=== PATIENT | female | born 1985 | race Caucasian/White ===

== ENCOUNTER → 2017-04-12 | Outpatient (CLI) | payer OTHER | END | disposition home or self-care (01) | LOC: C.LABSPEC 16:53 | PROVIDERS: ATTEND Obstetrics & Gynecology | DX: Z34.01 Encounter for supervision of normal first pregnancy, first trimester (principal) ==

== ENCOUNTER → 2017-04-12 | Outpatient (CLI) | payer OTHER | END | disposition home or self-care (01) | LOC: C.PAPS 16:10 | PROVIDERS: ATTEND Obstetrics & Gynecology | DX: Z34.01 Encounter for supervision of normal first pregnancy, first trimester (principal) ==

== ENCOUNTER → 2017-04-15 | Outpatient (CLI) | payer OTHER ==
[2017-04-15 09:15] LABS: BASO % 0.2 %; BASO ABS # 0.02 K/uL (0-0.2); EOS % 0.6 %; EOS ABS # 0.05 K/uL (0-0.5); HEMATOCRIT 38.9 % (37-47); HEMOGLOBIN 13.4 g/dL (12.0-16.0); LYMPH ABS # 1.08 K/uL (1.2-3.4); MEAN CELL VOLUME 91.3 fL (80-100); MEAN CORPUSCULAR HEMOGLOBIN 31.5 pg (25-34); MEAN CORPUSCULAR HGB CONC 34.4 g/dl (32-36); MEAN PLATELET VOLUME 9.2 fL (7.4-10.4); MONO % 4.2 %; MONO ABS # 0.38 K/uL (0.11-0.59); NEUT % 81.9 %; NEUT ABS # 7.39 K/uL (1.4-6.5); PLATELET COUNT 238 K/uL (130-400); RED CELL DISTRIBUTION WIDTH CV 13.2 % (11.5-14.5); RED CELL DISTRIBUTION WIDTH SD 43.5 fL (36.4-46.3); WHITE BLOOD COUNT 9.02 K/uL (4.8-10.8)
== END | disposition home or self-care (01) ==
LOC: C.LAB 07:46
PROVIDERS: ATTEND Obstetrics & Gynecology
DX: Z34.82 Encounter for supervision of other normal pregnancy, second trimester (principal); Z3A.00 Weeks of gestation of pregnancy not specified

== ENCOUNTER 2017-05-17 19:08 | Emergency (ER) | payer OTHER ==
[~2017-05-17] VITALS: Ht 165.1 cm; Wt 87.0 kg
[2017-05-17 19:12] VITALS: TEMP 36.8; Ht 165.1 cm; Wt 87.0 kg
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
[2017-05-17] MEDS ORDERED: PRENTAB26 PO (19:42)
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
[2017-05-17 20:54] VITALS: BP 112/66; PULSE 80; O2SAT 99
== END 2017-05-17 20:54 | disposition home or self-care (01) ==
LOC: EDBD 19:08 → C.EDB 19:10
DX: O9A.212 Injury, poisoning and certain other consequences of external causes complicating pregnancy, second trimester (principal); V43.52XA Car driver injured in collision with other type car in traffic accident, initial encounter; Z3A.21 21 weeks gestation of pregnancy; Z87.891 Personal history of nicotine dependence

== ENCOUNTER 2019-06-27 09:55 | Inpatient (IN) ==
[~2019-06-27 09:55] MED LIST: CITRIC ACID/SODIUM CITRATE 15 ML UDC PO SCH; cefOXitin 2,000 MG in DEXTROSE 5% 50 ML IV SCH
[2019-06-27] MEDS ORDERED: CITRIC ACID/SODIUM CITRATE 15 ML UDC ONE (10:54)
[2019-06-27 11:04] LABS: Basophils # (auto) 0.01 K/uL (0-0.2); Basophils % (auto) 0.1 %; Eosinophils # (auto) 0.02 K/uL (0-0.5); Eosinophils % (auto) 0.2 %; Hematocrit (blood only) 39.4 % (37-47); Hemoglobin 13.1 g/dL (12.0-16.0); Immature Granulocytes # (auto) 0.03 K/uL (0.00-0.02); Immature Granulocytes % (auto) 0.3 %; Lymphocytes # (auto) 1.21 K/uL (1.2-3.4); Lymphocytes % (auto) 12.7 %; Mean Corpuscular Hemoglobin 29.6 pg (25-34); Mean Corpuscular Volume 88.9 fL (80-100); Mean Platelet Volume 10.8 fL (7.4-10.4); Monocytes # (auto) 0.48 K/uL (0.11-0.59); Neutrophils % (auto) 81.7 %; Platelet Count 181 K/uL (130-400); RDW Coefficient of Variation 14.1 % (11.5-14.5); Red Blood Count 4.43 M/uL (4.2-5.4); White Blood Count 9.55 K/uL (4.8-10.8)
[2019-06-27] MEDS ORDERED: LIDOCAINE/EPINEPHRINE 1% 20 ML VIAL ONE (11:06)
[2019-06-27 11:08] LABS: Mean Corpuscular Hgb Conc 33.2 g/dL (32-36)
[2019-06-27] MEDS ORDERED: MEPERIDINE HCL 25 MG/ML CARP/VIAL IV PRN (11:08)
[2019-06-27] MEDS ORDERED: ePHEDrine sulfate 50 MG/ML AMP IV PRN (11:08)
[2019-06-27] MEDS ORDERED: LACTATED RINGER'S 500 ML IV PRN (11:08)
[2019-06-27] MEDS ORDERED: PROMETHAZINE HCL 25 MG in SODIUM CHLORIDE 0.9% 50 ML IV PRN (11:08)
[2019-06-27] MEDS ORDERED: LACTATED RINGER'S 1,000 ML IV ONE (11:08)
[2019-06-27] MEDS ORDERED: DiphenhydrAMINE HCL 50 MG/ML VIAL IV PRN (11:08)
[2019-06-27] MEDS ORDERED: NALOXONE HCL 0.08 MG in SYRINGE 1.8 ML IV PRN (11:08)
[2019-06-27] MEDS ORDERED: MoRPHine SULFATE 2 MG/ML CARP IV PRN (11:08)
[2019-06-27] MEDS ORDERED: METOCLOPRAMIDE HCL 20 MG in SODIUM CHLORIDE 0.9% 50 ML IV PRN (11:08)
[2019-06-27] MEDS ORDERED: ONDANSETRON INJ 2 MG/ML 2 ML VIAL IV PRN (11:08)
[2019-06-27] MEDS ORDERED: NALOXONE HCL 0.4 MG/1 ML VIAL/CARP IV PRN (11:08)
[2019-06-27] MEDS ORDERED: KETOROLAC 30 MG/ML VIAL IV PRN (11:08)
[2019-06-27] MEDS ORDERED: NALBUPHINE HCL INJ 10 MG/ML AMP IV PRN (11:08)
[2019-06-27] MEDS ORDERED: NALOXONE HCL 1 MG in SODIUM CHLORIDE 0.9% 1000ML 1,000 ML IV PRN (11:08)
[2019-06-27] MEDS ORDERED: MoRPHine SULFATE PF 1 MG/ML 10 ML AMP/VIAL INT SPINAL ONE (11:08)
--- NOTE | 2019-06-27 11:08 | Anesthesiology Consultation ---
Date of Service June 27, 2019 Assessment & Plan Chart Review Chart Review: Acceptable Risk for Surgery Consults Requested none ASA ASA2 Proposed Anesthesia Anesthesia Type: Spinal Risk / Benefits Reviewed With: PT / POA / Parent / Guardian, Accepts Plan and Informed Consent Obtained History Surgery Operation Date: 06/27/19 11:30 Proposed Procedures p Section in LD(Bilateral) - Julio Gutiérrez MD C/S Height/Weight Height: 5 ft 5 in Weight: 88.904 kg Allergies Allergy/AdvReac Type Severity Reaction Status Date / Time No Known Allergies Allergy Verified 06/27/19 10:16 Medications Home Medications Medication Instructions Recorded Confirmed Last Taken PNV cmb#95-ferrous fumarate-FA 1 tab PO DAILY 06/06/19 06/27/19 06/16/19 09:00 [] NPO Date Last Intake of Fluids: 06/27/19 Time Last Intake of Fluids: 08:30 Last Intake of Fluids Comment: assume full Date Last Intake of Solids: 06/27/19 Time Last Intake of Solids: 08:30 Last Intake of Solids Comment: assume full Past Medical History Medical History Acid reflux r/t Scoliosis Exercise / Class Metabolic Activity II 4-5 Yardwork/Stairs/Walk up hill Past Family History Family History Other No family history of adverse response to anesthesia Past Surgical History Surgical History History of section Past Anesthesia History No Hx of Anesthesia Complications and No Family Hx of Anesthesia Complications History of PONV No Hx of PONV and No Hx of Motion Sickness Social History Smoking Status: Never smoker Hx Alcohol Use: No Hx Substance Use: No substance use type: does not use Physical Exam Vital Signs Last Vital Signs Temp 36.6 C 06/27/19 10:02 Pulse 93 H 06/27/19 10:04 Resp 20 06/27/19 10:02 BP 122/71 06/27/19 10:04 ENMT Mouth: no TMJ abnormality Thyromental Distance: > or= 3.5 Finger Breadths Mallampati Class: II Neck normal visual inspection and trachea midline; neck extension not limited Respiratory normal respiratory effort Auscultation: lungs clear to auscultation bilaterally Cardiovascular Rate/Rhythm: regular rate and regular rhythm Heart Sounds: no murmur Musculoskeletal Spine: normal cervical ROM Extremities: full ROM of extremities Neurologic moves all extremities Psychiatric Orientation: alert and oriented x 3 Testing Laboratory Results 06/27/19 10:50
[2019-06-27] MEDS ORDERED: SODIUM CHLORIDE 0.9% 1000ML 1,000 ML IV SCH (11:15)
[2019-06-27] MEDS ORDERED: NO NARCOTICS OR SEDATIVES SCH (11:15)
[2019-06-27] MEDS ORDERED: DC INTRASPINAL MORPHINE SCH (11:15)
[2019-06-27] MEDS ORDERED: MoRPHine SULFATE PF 1 MG/ML 10 ML AMP/VIAL ONE (11:29)
[2019-06-27] MEDS ORDERED: fentaNYL citrate 100 MCG/2 ML VIAL ONE ×3 (11:29→13:28)
[2019-06-27] MEDS ORDERED: KETOROLAC 30 MG/ML VIAL ONE (11:34)
[2019-06-27] MEDS ORDERED: OXYTOCIN 10 UNITS/ML VIAL ONE (11:34)
[2019-06-27] MEDS ORDERED: ONDANSETRON INJ 2 MG/ML 2 ML VIAL ONE (11:34)
[2019-06-27] MEDS ORDERED: METOCLOPRAMIDE HCL INJ 5 MG/ML 2 ML VIAL ONE (11:34)
[2019-06-27] MEDS ORDERED: ePHEDrine sulfate 50 MG/ML AMP ONE (12:21)
[2019-06-27] MEDS ORDERED: KETAMINE HCL INJ 50 MG/ML 10 ML VIAL ONE (12:29)
[2019-06-27] MEDS ORDERED: OXYTOCIN 10 UNITS/ML VIAL IM ONE (13:06)
[2019-06-27] MEDS: LACTATED RINGER'S 1,000 ML IV SCH ×2 (13:43→21:43)
[2019-06-27] MEDS ORDERED: SENNA 8.6 MG TAB PO PRN (13:50)
[2019-06-27] MEDS ORDERED: BENZOCAINE 20% AER SPR 82.5 GM CAN EXT PRN (13:50)
[2019-06-27] MEDS ORDERED: HYDROCORTISONE ACETATE 25 MG SUPP PR PRN (13:50)
[2019-06-27] MEDS ORDERED: MAGNESIUM HYDROXIDE SUSP 30 ML UDC PO PRN (13:50)
[2019-06-27] MEDS ORDERED: SUPERCREAM 0.870% 15 GM JAR EXT PRN (13:50)
[2019-06-27] MEDS ORDERED: DIPHTHERIA/TETANUS/PERTUSSIS 0.5 ML SYR/VIAL IM ONE (13:50)
--- NOTE | 2019-06-27 13:53 | Anesthesiology Progress Note ---
Date of Service June 27, 2019 Anesthesia Post Procedure Vital Signs Vital Signs: Temp Pulse Resp BP Pulse Ox 06/27/19 13:47 87 100 06/27/19 13:43 98 H 115/62 06/27/19 13:42 97 H 100 06/27/19 10:04 93 H 122/71 06/27/19 10:02 36.6 C 20 Transfer of Care Handoff Completed per policy Notes Mental Status: alert / awake / arousable Patient Amnestic to Procedure: Yes Nausea / Vomiting: adequately controlled Pain: adequately controlled Airway Patency, RR, SpO2: stable & adequate BP & HR: stable & adequate Hydration State: stable & adequate Neuraxial Anesthesia: was administered and sensory block is resolving Anesthetic Complications: no major complications apparent and Pt Satisfied with anesthetic care
--- NOTE | 2019-06-27 13:53 | Post Operative Brief Note ---
Immediate Post Op Note v1 Date of Surgery June 27, 2019 Pre & Post Diagnosis Operation Date: 06/27/19 11:30 Pre-Op Diagnosis: Labor;Previous Caesarean Section;Desires Sterilization Post-Op Diagnosis: Same;delivery of a live male child at 1240 I identified the patient and participated in the time-out.: Yes Procedure Operation Date: 06/27/19 11:30 Actual Procedures p Section in LD(Bilateral) - Julio Gutiérrez MD Surgeon Julio Gutiérrez MD Fingerprint Technician Dr parson Estimated Blood Loss 500 Findings Consistent with Post-Op Diagnosis adhesions anterior abdominal wall Fluids 2000 ml Specimens placenta portion of both fallopian tubes Drains Myles Catheter Anesthesia Type Spinal Disposition Accompanied Patient To Recovery: No Disposition: Recovery Room
--- NOTE | 2019-06-27 14:12 | Operative Report (OR) ---
DATE OF OPERATION: 06/27/2019 PROCEDURE: Repeat low segment section, bilateral tubal ligation. INDICATIONS FOR SURGERY: Desire for permanent sterilization. PREOPERATIVE DIAGNOSIS: Desire for permanent sterilization, active labor. POSTOPERATIVE DIAGNOSES: Direct occiput and posterior position. SURGEON: Dr. Gutiérrez. CHAMBER WORKER: Dr. Richter. ESTIMATED BLOOD LOSS: 500 mL. ANESTHESIA: Spinal. OPERATIVE FINDINGS AND PROCEDURE: The patient was brought to the OR table, correctly identified by armband and conversation. A spinal anesthesia was administered. Compression stockings were applied. Myles catheter was inserted bladder, connected to gravity drainage. Lower abdomen was painted with an alcohol based sterilizing solution, draped in the usual sterile fashion. Anesthesia level was checked and found to be good. Pfannenstiel incision was made through a previous scar. Incision was carried down to the anterior fascia by sharp dissection. Hemostasis was secured by electrocauterization. Fascia was incised transversely from the underlying muscle by blunt and sharp dissection. Recti muscles were in the midline which exposed the peritoneum which was carefully raised and entered. There was an adhesion of some of the omentum to the anterior abdominal wall. This was taken down. Lower uterine segment was exposed. Incision was made over the vesicouterine fold. Bladder was undermined bluntly and pushed out of the operative field. Lower uterine segment was scored with a knife and entered with scissors. At this time a direct occiput posterior position was seen was wedged in the pelvis although you could see the 's eyes and mouth. We had some difficulty dislodging the head from the pelvis and eventually we got it free and then proceeded to deliver the who was attended to by the dental nurse, Dr. Wu, who was scrubbed and present at time of delivery. Cord was clamped and cut. Cord blood was taken. Placenta was removed manually. Uterus, tubes, and ovaries were brought out through the incision. Ten units of Pitocin was injected into the myometrium. Uterine cavity was cleansed with a clean sponge. Myometrium was approximated in layers. Muscular layer was approximated with continuous chromic gut suture. Fascial layer was approximated over this with a continuous interlocking suture of heavy Vicryl. Two interrupted [id number] Vicryls were used to approximate the incisional edges to secure hemostasis in addition to the 2-layer closure. Then, the peritoneal edges were restored with a continuous 3-0 chromic, which restored the integrity of the vesicouterine fold. The pelvis was cleansed of all blood clots and debris. Tubal ligation was performed on each tube. The tubes were ligated with a plain tie proximally and distally. The portion between was injected with local with epinephrine. Two leaves of the broad ligament were dissected out. A section of the tube was removed. Then the broad ligament was approximated front to back burying the proximal stump of the tube and exteriorizing the distal. This was done for both the right and left fallopian tube. Uterus, tubes, and ovaries were reinserted into the abdominal cavity. Careful anatomical approximation of the anterior abdominal wall was performed. Peritoneum was closed with a mattress suture of chromic catgut. Recti muscles approximated with interrupted [id number] suture of chromic catgut. The fascia was closed with continuous interlocking suture of Vicryl, subQ was approximated with continuous plain and skin edge approximated with staple clips. The patient tolerated these procedures well and left the OR in good condition. I attest to the content of the Intraoperative Record and any orders documented therein. Any exception s are noted below.
[2019-06-27] MEDS: SIMETHICONE 80 MG CHEW PO SCH ×2 (18:10→21:10)
[2019-06-27] MEDS: DOCUSATE SODIUM 100 MG CAP PO SCH (21:10)
[2019-06-28] MEDS ORDERED: DiphenhydrAMINE HCL 50 MG/ML VIAL IV PRN (05:09)
[2019-06-28] MEDS ORDERED: MEPERIDINE HCL 50 MG/ML CARP IV PRN (05:09)
[2019-06-28] MEDS ORDERED: PROMETHAZINE HCL 25 MG in SODIUM CHLORIDE 0.9% 50 ML IV PRN (05:09)
[2019-06-28] MEDS ORDERED: ONDANSETRON INJ 2 MG/ML 2 ML VIAL IV PRN (05:09)
[2019-06-28] MEDS ORDERED: KETOROLAC 30 MG/ML VIAL IV PRN (05:09)
[2019-06-28] MEDS ORDERED: ZOLPIDEM TARTRATE 5 MG TAB PO PRN (05:09)
[2019-06-28 06:02] LABS: Basophils # (auto) 0.01 K/uL (0-0.2); Basophils % (auto) 0.1 %; Eosinophils # (auto) 0.01 K/uL (0-0.5); Eosinophils % (auto) 0.1 %; Hemoglobin 12.1 g/dL (12.0-16.0); Immature Granulocytes # (auto) 0.04 K/uL (0.00-0.02); Immature Granulocytes % (auto) 0.3 %; Lymphocytes # (auto) 0.79 K/uL (1.2-3.4); Lymphocytes % (auto) 6.6 %; Mean Corpuscular Hemoglobin 29.3 pg (25-34); Mean Corpuscular Hgb Conc 32.7 g/dL (32-36); Mean Corpuscular Volume 89.6 fL (80-100); Mean Platelet Volume 10.4 fL (7.4-10.4); Monocytes # (auto) 0.65 K/uL (0.11-0.59); Monocytes % (auto) 5.4 %; Neutrophils # (auto) 10.53 K/uL (1.4-6.5); Neutrophils % (auto) 87.5 %; Platelet Count 158 K/uL (130-400); RDW Coefficient of Variation 14.2 % (11.5-14.5); RDW Standard Deviation 46.6 fL (36.4-46.3); Red Blood Count 4.13 M/uL (4.2-5.4); White Blood Count 12.03 K/uL (4.8-10.8)
[2019-06-28] MEDS: SIMETHICONE 80 MG CHEW PO SCH ×4 (09:04→20:23)
[2019-06-28] MEDS: FERROUS SULFATE 325 MG TAB PO SCH (09:05)
[2019-06-28] MEDS: DOCUSATE SODIUM 100 MG CAP PO SCH ×2 (09:05→20:23)
[2019-06-28] MEDS: OXYCODONE/ACETAMINOPHEN 5mg/325mg TAB PO PRN ×2 (09:05→15:32)
[2019-06-28] MEDS: PRENATAL VITAMIN 1 TAB PO SCH (09:05)
[2019-06-28] MEDS: IBUPROFEN 600 MG TAB PO PRN ×3 (09:05→20:23)
--- NOTE | 2019-06-28 12:01 | Obstetrical Progress Note ---
Date of Service June 28, 2019 Assessment & Plan Admission and Anticipated Discharge Date Admission Date: June 27, 2019 Physical Exam Physical Exam: abdomen soft and non tender incision is clean and dry no calf tenderness ambulating well vaginal bleeding scant hgb 12.1 Results & Data ([facility]) Vital Signs (Past 12 Hours) Vital Signs Temp Pulse Resp BP Pulse Ox 06/28/19 07:53 36.8 C 76 20 101/67 97 06/28/19 04:20 18 100 06/28/19 03:20 36.8 C 94 H 18 121/78 100 06/28/19 01:40 18 100 06/28/19 00:40 18 100
[2019-06-28] MEDS ORDERED: bisacodyL 10 MG SUPP PR STA (17:15)
[2019-06-28] MEDS ORDERED: bisacodyL 5 MG TABEC PO SCH (20:00)
[2019-06-29] MEDS: IBUPROFEN 600 MG TAB PO PRN ×2 (03:00→07:49)
[2019-06-29] MEDS: OXYCODONE/ACETAMINOPHEN 5mg/325mg TAB PO PRN ×2 (03:01→07:49)
[2019-06-29 06:09] LABS: Hematocrit (blood only) 35.1 % (37-47); Hemoglobin 11.3 g/dL (12.0-16.0)
[2019-06-29] MEDS: PRENATAL VITAMIN 1 TAB PO SCH (07:49)
[2019-06-29] MEDS: DOCUSATE SODIUM 100 MG CAP PO SCH (07:49)
[2019-06-29] MEDS: FERROUS SULFATE 325 MG TAB PO SCH (07:49)
[2019-06-29] MEDS: SIMETHICONE 80 MG CHEW PO SCH (07:49)
--- NOTE | 2019-06-29 10:11 | Obstetrical Progress Note ---
Date of Service June 29, 2019 Assessment & Plan Admission and Anticipated Discharge Date Admission Date: June 27, 2019 Physical Exam Physical Exam: abdomen soft and non tender incision is clean and dry no calf tenderness ambulating well vaginal bleeding scant hgb 11.3 Results & Data ([facility]) Vital Signs (Past 12 Hours) Vital Signs Temp Pulse Resp BP Pulse Ox 06/29/19 07:55 36.7 C 91 H 18 106/69 98 06/28/19 23:15 36.4 C L 74 16 99/64 L
--- NOTE | 2019-06-29 10:24 | Anesthesiology Progress Note ---
Date of Service June 29, 2019 Anesthesia Post Procedure Vital Signs Vital Signs: Temp Pulse Resp BP Pulse Ox 06/29/19 07:55 36.7 C 91 H 18 106/69 98 06/28/19 23:15 36.4 C L 74 16 99/64 L 06/28/19 19:05 37.1 C 91 H 18 108/69 98 06/28/19 15:57 36.9 C 83 16 118/74 98 06/28/19 11:50 36.7 C 77 20 101/64 Pain Intensity Lower Abdomen: Pain Intensity: 1 Transfer of Care Handoff Completed per policy Notes Mental Status: alert / awake / arousable Patient Amnestic to Procedure: Yes Nausea / Vomiting: adequately controlled Pain: adequately controlled Airway Patency, RR, SpO2: stable & adequate BP & HR: stable & adequate Hydration State: stable & adequate Neuraxial Anesthesia: was administered and sensory block resolved Anesthetic Complications: no major complications apparent and Pt Satisfied with anesthetic care
--- NOTE | 2019-06-29 10:27 | Discharge Summary (DS) ---
Mrs. Powell was a 2, para 1, previously had a for cephalopelvic disproportion. Present has been uneventful. She was scheduled for repeat at 39 weeks but came in in labor at 38 weeks and 2 days. She was breathing through her contractions. She had significant cervical change to 4 cm. The patient also requested permanent sterilization. She was given prophylactic antibiotics, taken to the OR where a repeat low segment section, bilateral tubal ligation was performed. Preop hemoglobin was 12.1, postop hemoglobin was 11.3. The patient did well postoperatively. She remained afebrile. Her bowel sounds returned in under 24 hours. At the time of discharge, she was ambulating well, eating well and pain was well controlled on a combination of Percocet and Motrin. She was told to return to the office for removal of the cammy and she was given the usual and post-C section instructions.
[2019-06-29] MEDS ORDERED: bisacodyL 10 MG SUPP PR PRN (13:50)
== END 2019-06-29 11:20 | disposition home or self-care (01) | DRG 785 ==
LOC: OPB 09:55 → 4S1 09:56 → 4S2 16:33